=== PATIENT | female | born 1995 | race Caucasian/White ===

== ENCOUNTER 2017-04-28 10:36 | Outpatient (CLI) | payer BC | END 2017-04-28 10:37 | disposition home or self-care (01) | LOC: CONVCARE 10:36 | PROVIDERS: ATTEND Orthopaedic Surgery | DX: M25.561 Pain in right knee (principal) | CPT/HCPCS: 73562 ==

== ENCOUNTER 2017-11-30 23:19 | Emergency (ER) | payer BC ==
[2017-11-30] MEDS ORDERED: LIDOCAINE HCL 2% (VISCOUS) 20 ML SOL MT ONE (23:32)
[2017-11-30] MEDS ORDERED: APAP/OXYCODONE 325/5 TAB PO ONE (23:32)
[2017-11-30 23:38] VITALS: RESP 20
[2017-11-30] MEDS ORDERED: LIDOCAINE HCL 2% (VISCOUS) 20 ML SOL ONE (23:39)
[2017-11-30] MEDS ORDERED: APAP/OXYCODONE 325/5 TAB ONE (23:39)
[2017-12-01 00:22] VITALS: BP 121/81; PULSE 91; TEMP 97.2; O2SAT 100
== END 2017-12-01 00:25 | disposition home or self-care (01) ==
LOC: ED 23:19
DX: N75.0 Cyst of Bartholin's gland (principal)
CPT/HCPCS: 99282; A9270-GY